=== PATIENT | male | born 1990 | race Two or more races ===

== ENCOUNTER 2025-03-05 17:33 | Inpatient (IN) | payer OTHER ==
[~2025-03-05] VITALS: Ht 165.1 cm; Wt 70.7 kg
[2025-03-05] MEDS ORDERED: IBUP-1506 PO (18:30)
[2025-03-05] MEDS: ONDANSETRON HCL 4 MG/2 ML VIAL IVP ONE (18:42)
[2025-03-05] MEDS: SODIUM CHLORIDE 0.9% 1,000 ML IV ONE ×2 (18:42→18:50)
[2025-03-05] MEDS: MORPHINE SULFATE 4 MG/ML SYRINGE IVP ONE (18:43)
[2025-03-05] MEDS: IOHEXOL 9 MG/ML 500 ML BOTTLE PO ONE (18:50)
[2025-03-05 18:59] LABS: BASOPHILS % (AUTO) 0.7 % (0.0-2.0); EOSINOPHILS % (AUTO) 2.1 % (1.0-6.0); HEMATOCRIT 49.1 % (41-53); HEMOGLOBIN 16.9 g/dL (13.5-17.5); LYMPHOCYTES # (AUTO) 2.5 K/uL (1.0-4.8); LYMPHOCYTES % (AUTO) 27.3 % (22.0-44.0); MEAN CORPUSCULAR HEMOGLOBIN 28.5 pg (26.0-34.0); MEAN CORPUSCULAR HGB CONC 34.4 G/dL (31.0-37.0); MEAN CORPUSCULAR VOLUME 83 fL (80-100); MONOCYTES # (AUTO) 0.4 K/uL (0.1-1.0); MONOCYTES % (AUTO) 4.6 % (2.0-9.0); NEUTROPHILS # (AUTO) 5.9 K/uL (1.8-7.7); NEUTROPHILS % (AUTO) 65.3 % (40.0-70.0); PLATELET COUNT (AUTO) 284 K/uL (150-450); RED BLOOD CELL COUNT(AUTO) 5.92 MIL/uL (4.50-5.90); RED CELL DISTRIBUTION WIDTH 13.5 % (11.5-14.5); WHITE BLOOD COUNT (AUTO) 9.1 K/uL (4.5-11.0)
[2025-03-05 19:12] LABS: ANION GAP 11 mmol/L (8-16); CARBON DIOXIDE 24 mmol/L (22-29); CHLORIDE 100 mmol/L (98-107); CREATININE 0.82 mg/dL (0.60-1.30); GLOMERULAR FILTR. RATE CALC > 60 mL/min (>60); LIPASE 24 U/L (16-77); POTASSIUM 3.5 mmol/L (3.5-5.1); SODIUM SERUM 135 mmol/L (136-145); UREA NITROGEN, BLOOD 12 mg/dL (7-18)
[2025-03-05 19:17] LABS: GLUCOSE,RANDOM 411 mg/dL (70-110)
[2025-03-05 19:22] LABS: CALCIUM, TOTAL 9.6 mg/dL (8.8-10.5)
[2025-03-05 20:57] LABS: APPEARANCE,URINE CLEAR (CLEAR); BILIRUBIN,URINE NEGATIVE (NEGATIVE); COLOR,URINE COLORLESS (YELLOW); GLUCOSE, URINE (UA) >=1000 mg/dL (NEGATIVE); KETONES,URINE NEGATIVE (NEGATIVE); LEUKOCYTE ESTERASE ,URINE NEGATIVE (NEGATIVE); NITRATE,URINE NEGATIVE (NEGATIVE); OCCULT BLOOD,URINE NEGATIVE (NEGATIVE); PH,URINE 7.5 (5.0-8.0); PH,URINE DRUG SCREEN 7.5 (5.0-8.0); PROTEIN,URINE NEGATIVE (NEGATIVE); SPECIFIC GRAVITIY, URINE 1.019 (1.003-1.030); UROBILINOGEN,URINE <=1.0 mg/dL (<=1.0)
[2025-03-05 21:04] LABS: AMPHET/METH SCREEN,URINE NEGATIVE (NEGATIVE); BARBITURATE SCREEN, URINE NEGATIVE (NEGATIVE); BENZODIAZEPINES SCREEN,URINE NEGATIVE (NEGATIVE); CANNABINOID SCREEN,URINE NEGATIVE (NEGATIVE); COCAINE SCREEN,URINE NEGATIVE (NEGATIVE); METHADONE SCREEN, URINE NEGATIVE (NEGATIVE); OPIATE SCREEN,URINE POSITIVE (NEGATIVE); PHENCYCLIDINE SCREEN,URINE NEGATIVE (NEGATIVE)
[2025-03-05 21:07] LABS: ALCOHOL, URINE DRUG SCREEN NEGATIVE (NEGATIVE)
[2025-03-05] MEDS: INSULIN REGULAR, HUMAN 100 UNITS/ML IVP ONE (21:08)
[2025-03-05 21:14] LABS: RBC,URINE None Seen /HPF (0-2); WBC,URINE None Seen /HPF (0-5)
[2025-03-05 21:15] LABS: BACTERIA,URINE Rare /HPF (None Seen)
[2025-03-05] MEDS ORDERED: ZOLPIDEM TARTRATE 5 MG TABLET PO PRN (23:30)
[2025-03-05] MEDS ORDERED: HYDROCODONE/ACETAMINOPHEN 5-325 MG TABLET PO PRN (23:30)
[2025-03-05] MEDS ORDERED: ACETAMINOPHEN 325 MG TABLET PO PRN (23:30)
[2025-03-05] MEDS ORDERED: BISACODYL 10 MG RECTAL RECTAL SUPPOSITORY PR PRN (23:30)
[2025-03-05] MEDS ORDERED: MORPHINE SULFATE 2 MG/ML SYRINGE IVP PRN (23:30)
[2025-03-05] MEDS ORDERED: ALBUTEROL SULFATE 2.5 MG/0.5 ML NEB SOLUTION NEB PRN (23:30)
[2025-03-05] MEDS ORDERED: MAGNESIUM HYDROXIDE SUSPENSION 30 ML UDCUP PO PRN (23:30)
[2025-03-05] MEDS ORDERED: ONDANSETRON HCL 4 MG/2 ML VIAL IVP PRN (23:30)
[2025-03-05] MEDS ORDERED: IPRATROPIUM BROMIDE 0.5 MG/2.5 ML NEB SOLUTION NEB PRN (23:30)
[2025-03-06] MEDS: HEPARIN SODIUM,PORCINE 5,000 UNITS/ML VIAL SQ SCH (00:26)
[2025-03-06 01:10] VITALS: BP 115/72; PULSE 74; RESP 18; TEMP 98.1; O2SAT 99
[2025-03-06 05:56] VITALS: BP 103/90; PULSE 79; RESP 18; TEMP 97.7; O2SAT 99
[2025-03-06 08:34] VITALS: BP 105/78; PULSE 75; RESP 18; TEMP 98.2; O2SAT 100
[2025-03-06 08:46] LABS: GLUCOMETER DEV NAME(LOC) 6S.1D; GLUCOSE,POINT OF CARE 241 MG/DL (70-110)
[2025-03-06] MEDS: PANTOPRAZOLE SODIUM 40 MG DR TABLET PO SCH (08:50)
[2025-03-06 14:35] LABS: GLUCOMETER DEV NAME(LOC) 6S.2; GLUCOSE,POINT OF CARE 235 MG/DL (70-110)
== END 2025-03-06 18:28 | DRG 395 ==
LOC: EMS 17:58 → EDH 23:21 → 6S 03-06 00:40
PROVIDERS: ADMIT Hospitalist; ATTEND Hospitalist
DX: K43.9 Ventral hernia without obstruction or gangrene (principal); K70.30 Alcoholic cirrhosis of liver without ascites; E11.65 Type 2 diabetes mellitus with hyperglycemia; F10.90 Alcohol use, unspecified, uncomplicated; I86.8 Varicose veins of other specified sites
CPT/HCPCS: 71045; 74177; 80048; 80307; 81001; 82962; 83690; 85025; 93005; 99285; G0378; J1644; J1815; J2270; J2405; J7030; 36415-L1; 36415-TC